=== PATIENT | male | born 1985 | race Caucasian/White ===

== ENCOUNTER 2019-11-11 05:21 | Day surgery (SDC) | payer BC ==
[~2019-11-11] VITALS: Ht 177.8 cm; Wt 88.5 kg
[~2019-11-11 05:21] MED LIST: BACLOFEN20 M1 PO; HYDROCODONE/ACETAMIN PO; NORCO 7.5-3251 EACH PO
[2019-11-11 06:40] VITALS: Ht 177.8 cm; Wt 88.5 kg
[2019-11-11] MEDS ORDERED: DILAUDID4 MG PO (06:47)
[2019-11-11] MEDS ORDERED: TORADOL10 MG PO (06:47)
[2019-11-11] MEDS ORDERED: VISTARIL50 MG PO (06:47)
--- NOTE | 2019-11-11 08:29 | NUR ---
0825 PT HAS BLOCK, ASSISSTED UP TO BR, VOIDS AND HAS BM. BLOCK IN EFFECT. AMBULATED WITHOUT PROBLEMS, AT SIDE. O2 AT 2L NC
--- NOTE | 2019-11-11 08:48 | NUR ---
0845 LEFT EYE DROOPY. TALKATIVE WITH PLAIN SPEACH, ARM NUMB.
--- NOTE | 2019-11-12 06:35 | OP ---
PATIENT NAME: BRIDGET SCHERER MEDICAL RECORD: [id number] :84 LOCATION:[facility] ADMISSION DATE: SURGEON: AARON THOMAS DO DATE OF OPERATION: 11/11/2019 PROCEDURE PERFORMED: Left shoulder arthroscopy with labral debridement, subacromial decompression, distal clavicle excision and biceps tenodesis. PREOPERATIVE DIAGNOSES: Left shoulder superior labrum anterior and posterior tear, [place] complex posterior labral tear, subacromial impingement and acromioclavicular joint arthritis. POSTOPERATIVE DIAGNOSES: Left shoulder superior labrum anterior and posterior tear, Samson complex posterior labral tear, subacromial impingement and acromioclavicular joint arthritis. INDICATIONS: Mr. Scherer is a 34-year-old male who presented to my office with an MRI that showed a posterior labral tear after a trauma. He is having continued pain. He did have good range of motion with it and told him posterior labral tears usually we do not fix, but I can give a look at it due to his pain and make sure that he was not dislocating posteriorly and I would clean of the rest of the shoulder, probably do a biceps tenodesis to keep it from pulling on that tear. He was okay with that and he is aware the risks including infection, bleeding, damage to nerves or vessels, need for further surgery, continued pain and instability, need for physical therapy, and failure of implants and bicep deformity and he signed the consent. SURGEON: Aaron Thomas DO DESCRIPTION OF PROCEDURE: The patient was taken to the operative suite after getting a block by anesthesia. Preoperative antibiotics were given, 900 mg clindamycin, laid in the right lateral decubitus position with the left shoulder up. He was sedated and LMA was placed. The left shoulder was then prepped and draped in sterile fashion. Timeout was performed. Everyone was in agreement with the correct site, side, patient, and procedure. I then began by inserting the 18-gauge spinal needle through a posterior portal inflating the shoulder joint with 60 cc of normal saline. Once that was done, the posterior portal was established with 11-blade scalpel. Trocar was entered into the joint. Once that was entered into the joint, the trocar entered in, the camera entered in, and the anterior portal established with 18-gauge spinal needle and 11-blade scalpel. I then looked at the camera, saw the Samson complex SLAP tear and then switched portals to the anterior portal for the camera and saw the posterior labral tear from about the 7-10 o'clock position, it was completely absent and then irreparable, could not repair it, so I brought in the shaver through the posterior portal and debrided it. I tested the shoulder and could not get it to dislocate posteriorly, but it had equal balance anterior and posteriorly. I then, prior to doing that through the anterior portal, brought in a burner and did a biceps tenotomy. I looked at the rotator cuff tendons. The infraspinatus, supraspinatus and subscapularis were all intact and there was nothing inferior. The cartilage looked good also. I then went to the subacromial space, established a lateral portal with an 18-gauge spinal needle and blade scalpel and did a subacromial decompression doing an anterolateral acromioplasty and through the anterior portal, brought in and did a distal clavicle excision. I then removed that and went to the anterior humerus and made an incision and with blunt dissection, dissected down the long head of the OPERATIVE REPORT [id number] BRIDGET SCHERER biceps tendon and brought out through the incision and then put a unicortical hole in the humerus and put a 2.9 JuggerLoc anchor with a loop and then tensioned the biceps, cinched the loop down and then cut the loop, and with a free needle went down through the bicep tendon and tied that into place. Having cut the excess suture and tendon, irrigated and then, Abilio Davalos, certified medical assistant, closed the site with 2-0 Vicryl in inverted interrupted fashion, 4-0 Monocryl in the skin, the portal sites with 4-0 Monocryl in a vertical fashion. He was then dressed with Dermabond, Telfa and Tegaderm. He was awakened, put in a sling and taken to recovery in stable condition. BLOOD LOSS: Minimal. COMPLICATIONS: None. 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
== END 2019-11-11 12:00 | disposition home or self-care (01) ==
LOC: D.OPS 05:21
PROVIDERS: ATTEND Orthopaedic Surgery
DX: S43.432A Superior glenoid labrum lesion of left shoulder, initial encounter (principal); X58.XXXA Exposure to other specified factors, initial encounter; M75.42 Impingement syndrome of left shoulder; M13.812 Other specified arthritis, left shoulder; M25.512 Pain in left shoulder